=== PATIENT | female | born 1980 | race Caucasian/White ===

== ENCOUNTER 2021-10-23 10:04 | Day surgery (SDC) | payer OTHER ==
[~2021-10-23] VITALS: Ht 162.6 cm; Wt 86.2 kg
[2021-10-23] MEDS ORDERED: fentaNYL citrate 0.05 MG/ML VIAL ONE (12:45)
[2021-10-23] MEDS ORDERED: MIDAZOLAM 2 MG/2 ML VIAL ONE (12:46)
[2021-10-23] MEDS ORDERED: fentaNYL citrate 0.05 MG/ML VIAL IVP ONE (14:50)
[2021-10-23] MEDS ORDERED: MIDAZOLAM 2 MG/2 ML VIAL IVP ONE (14:50)
== END 2021-10-23 14:25 | disposition home or self-care (01) ==
LOC: MOR 10:04 → MMU 11:10 → MOR 14:25
PROVIDERS: ATTEND Internal Medicine Gastroenterology
DX: K21.9 Gastro-esophageal reflux disease without esophagitis (principal); K44.9 Diaphragmatic hernia without obstruction or gangrene; K22.10 Ulcer of esophagus without bleeding; Z90.49 Acquired absence of other specified parts of digestive tract; Z79.899 Other long term (current) drug therapy
CPT/HCPCS: 43235; 81025; J2250; J3010